=== PATIENT | female | born 1950 | race Caucasian/White ===

== ENCOUNTER → 2019-07-15 10:20 | Outpatient (CLI) | payer MEDICARE, OTHER ==
[2019-07-15 11:33] LABS: CALCIUM 9.5 mg/dL (8.5-10.1); CREATININE - SERUM 1.5 mg/dL (0.6-1.3)
== END | disposition home or self-care (01) ==
LOC: D.LAB 09:45 → D.RAD 10:00 → D.LAB 10:20
PROVIDERS: ATTEND Family Medicine
DX: R13.10 Dysphagia, unspecified (principal)